=== PATIENT | female | born 1965 | race African-American/Black ===

== ENCOUNTER 2017-05-08 01:45 | Emergency (ER) | payer MEDICAID, OTHER ==
[~2017-05-08] VITALS: Ht 167.6 cm; Wt 68.0 kg
[~2017-05-08 01:45] MED LIST: ALBU05 IH; DOXY40CP2 PO; LEVO5TAB29 PO; MONT10TA21 PO; PROP10TA10 PO
[2017-05-08] MEDS ORDERED: ACETAMINOPHEN 325MG TABLET PO STA (03:09)
[2017-05-08] MEDS ORDERED: SODIUM CHLORIDE 0.9% 1,000 ML IV ONE (03:09)
[2017-05-08] MEDS ORDERED: ASPIRIN 81MG TABLET PO ONE (03:15)
[2017-05-08] MEDS ORDERED: KETOROLAC 30MG/ML VIAL IV STA (03:22)
[2017-05-08 04:48] LABS: BASOPHILS % 0.9 % (0.0-2.0); EOSINOPHILS % 0.1 % (0.0-5.0); HEMATOCRIT. 38.6 % (36.0-48.0); HEMOGLOBIN. 13.4 g/dL (12.0-16.0); LYMPHOCYTES % 21.5 % (20.0-50.0); MEAN CORPUSCULAR HEMOGLOBIN 31.1 pg (28.0-32.0); MEAN CORPUSCULAR VOLUME 89.6 fL (81.0-99.0); MEAN PLATELET VOLUME 8.5 fl (7.4-10.4); MONOCYTES % 6.2 % (2.0-8.0); NEUTROPHILS % 71.3 % (40.0-76.0); PLATELET 186 x1000/uL (130-400); RED BLOOD CELL COUNT 4.31 mill/uL (4.2-5.4)
[2017-05-08 05:11] LABS: CARBON DIOXIDE 25 mEq/L (21-32); CHLORIDE 112 mEq/L (98-107); ETHANOL BLOOD < 10 mg/dL; TROPONIN I < 0.02 ng/mL (0.00-0.04)
[2017-05-08 06:03] VITALS: BP 139/69
== END 2017-05-08 06:20 | disposition home or self-care (01) ==
LOC: ER 01:53
DX: R51 Headache (principal); F41.9 Anxiety disorder, unspecified; R42 Dizziness and giddiness; Z88.0 Allergy status to penicillin; Z88.6 Allergy status to analgesic agent
CPT/HCPCS: 36415; 70450; 71010; 80053; 83880; 84484; 85025; 93005; 96361; 96374; 99285; G0482; J1885; J7030; Z7610